=== PATIENT | male | born 2000 | race Native Hawaiian/Other Pacific Islander ===

== ENCOUNTER → 2020-09-18 | Outpatient (CLI) | payer OTHER ==
--- NOTE | 2020-09-19 10:26 | ECHOF ---
Referral Reason:R00.2 Palpitations MEASUREMENTS -------- HEIGHT: 182.9 cm WEIGHT: 61.2 kg BP: IVSd: 0.8 cm (0.6 - 1.1) LVIDd: 3.8 cm (3.9 - 5.3) LVPWd: 1.3 cm (0.6 - 1.1) EDV(Teich): 61 ml IVSs: 1.2 cm LVIDs: 3.1 cm LVPWs: 1.2 cm %IVS Thck: 47 % ESV(Teich): 36 ml EF(Teich): 40 % %FS: 19 % SV(Teich): 25 ml LA Diam: 2.5 cm (2.7 - 3.8) RVIDd: 1.9 cm (< 3.3) EPSS: 0.4 cm MV E Sunny: 0.73 m/s MV DecT: 198 ms MV Dec [place]: 3.7 m/s MV A Sunny: 0.42 m/s MV E/A Ratio: 1.71 MV PHT: 57 ms TR Vmax: 2.35 m/s TR maxP.16 mmHg RAP: 5.00 mmHg RVSP: 27.16 mmHg MV EF SLOPE: 89.55 mm/s (70 - 150) MV EXCURSION: 24.82 mm (> 18.000) FINDINGS -------- Sinus rhythm. This was a technically good study. LV size, wall thickness and systolic function are normal, with an EF greater than 55%. The left salma tricular size is normal. The right ventricle is normal in size. The left atrial size is normal. The right atrial size is normal. There is mild aortic valve sclerosis. There is no evidence of aortic regurgitation. Mild mitral regurgitation is present. Mild tricuspid regurgitation present. Right ventricular systolic pressure is normal at < 35 mmHg. There is no pulmonic regurgitation present. The aortic root size is normal. There is no pericardial effusion. CONCLUSIONS -------- 1. Sinus rhythm. 2. LV size, wall thickness and systolic function are normal, with an EF greater than 55%. 3. The left ventricular size is normal. 4. The right ventricle is normal in size. 5. The left atrial size is normal. 6. The right atrial size is normal. 7. There is mild aortic valve sclerosis. 8. Mild mitral regurgitation is present. 9. Mild tricuspid regurgitation present. 10. The aortic root size is normal. 11. There is no pericardial effusion. SLIVER FORMER: Beatris Gupta RDCS
== END | disposition home or self-care (01) ==
LOC: RADECHMAIN 14:55
PROVIDERS: ATTEND Internal Medicine
DX: I08.1 Rheumatic disorders of both mitral and tricuspid valves (principal); I49.8 Other specified cardiac arrhythmias
CPT/HCPCS: 93306

== ENCOUNTER → 2020-09-23 | Outpatient (CLI) | payer OTHER ==
--- NOTE | 2020-09-23 22:37 | MR ---
EXAMINATION TYPE: MR knee RT wo con DATE OF EXAM: 09/23/2020 COMPARISON: None. HISTORY: Right lateral knee pain after running for 1 month. Rule out torn meniscus. Other internal de rangements. TECHNIQUE: Multiplanar, multisequence imaging of the right knee is performed without IV contrast. FINDINGS: MEDIAL MENISCUS: Anterior and posterior horns are intact without tear. LATERAL MENISCUS: Anterior and posterior horns are intact without tear. CRUCIATE LIGAMENTS: The anterior and posterior cruciate ligaments are intact and unremarkable. COLLATERAL LIGAMENTS: The medial collateral ligament and lateral collateral ligament complex are inta ct and unremarkable. EXTENSOR MECHANISM: Visualized quadriceps and patellar tendons are intact. EFFUSION: Tiny suprapatellar joint effusion. POPLITEAL CYST: No popliteal/serrano cyst. TRICOMPARTMENT SPACES: Mild inferior patellofemoral compartment narrowing. Tricompartment joint spac es are otherwise maintained. No significant spurring is seen. CARTILAGE: Tricompartmental articular cartilage is preserved. BONE MARROW SIGNAL: There is a heterogeneous diminished T1 and increased T2 signal present in the fib ular head. Findings most prominent in the proximal tibial metaphysis greatest over the medial aspect. There are additional areas in the distal tibial metaphysis greatest over the medial posterior aspect . No areas of low T1 signal to suggest radial occult fracture OTHER: No additional significant abnormality is appreciated. IMPRESSION: Multifocal areas of osseous contusion and/or abnormal bone marrow edema involving the fib ular head, distal femur centered posterior medial metaphysis and most pronounced throughout the proxi mal tibial metaphysis greatest over the medial aspect. No discrete meniscal or ligamentous tear.
== END | disposition home or self-care (01) ==
LOC: RADMRIMAIN 20:47
PROVIDERS: ATTEND Orthopaedic Surgery
DX: M25.561 Pain in right knee (principal)

== ENCOUNTER → 2020-10-04 | Outpatient (CLI) | payer OTHER ==
--- NOTE | 2020-10-04 17:09 | NM ---
EXAMINATION TYPE: NM bone 3 phase DATE OF EXAM: 10/04/2020 COMPARISON: MRI right knee 09/23/2020 HISTORY: 20-year-old male M23.8X1, internal derangement right knee, S80.01XD. TECHNIQUE: No Triple phase bone scintigraphy was performed following the injection of 19.8 mCi Tc 99m MDP. Immediate images and 4 hours post injection images acquired. Image centered at the bilateral k nees. FINDINGS: No significant increased asymmetric uptake on flow or pool images at either knee. Delayed images show focal increased activity along the bilateral medial tibial plateaus. On the right, some increased ac tivity extends to the lateral tibial plateau, metadiaphysis, and fibular head. IMPRESSION: Abnormality on delayed bone scan images with increased activity involving the bilateral medial tibial plateaus suggesting osseous injuries or contusions. On the right, lesser degree of increased activit y also extends to the lateral tibial plateau, proximal tibial metadiaphysis, and fibular head suggest ing additional sites of osseous injury/contusions.
== END | disposition home or self-care (01) ==
LOC: RADNMMAIN 07:16
PROVIDERS: ATTEND Orthopaedic Surgery
DX: M23.8X1 Other internal derangements of right knee (principal); S80.01XD Contusion of right knee, subsequent encounter
CPT/HCPCS: 78315; A9503

== ENCOUNTER 2024-06-10 14:44 | Emergency (ER) | payer OTHER ==
[2024-06-10 15:16] VITALS: RESP 18
--- NOTE | 2024-06-10 16:34 | ED ---
Lower Extremity Injury HPI - General Source: patient, RN notes reviewed Mode of arrival: ambulatory Limitations: no limitations - History of Present Illness MD Complaint: ankle injury, foot injury Onset/Timin -: days(s) <Korey Álvarez - Last Filed: 06/10/24 16:33> <Viviane Lamar - Last Filed: 06/12/24 00:14> - General Chief Complaint: Extremity Injury, Lower Stated Complaint: R ankle pain Time Seen by Provider: 06/10/24 15:01 - History of Present Illness Initial Comments: Quick note: This is a 24-year-old male with right ankle pain (11/21) following a slip and fall on 06/06/2024. Patient states he had an x-ray formed at the [facility] urgent care with no fracture was discovered. Endorses ongoing pain and swelling and is still unable to bear weight on affected extremity. (Korey Álvarez) 24-year-old male presenting with chief complaint of right ankle pain. Patient had a slip and fall on 06/06 and twisted his ankle. He had x-rays performed at that time which showed no fracture. Patient was concerned because he had increasing swelling to the leg. He is still having pain with weightbearing. He has some bruising to the foot. (Viviane Lamar) - Related Data Previous Rx's Medication Instructions Recorded Acetaminophen-Codeine 300-30mg 1 tab PO Q4H PRN #20 tablet 10/01/15 [Tylenol #3] Ibuprofen [Motrin] 600 mg PO Q8HR PRN #30 tab 10/01/15 Allergies Allergy/AdvReac Type Severity Reaction Status Date / Time No Known Allergies Allergy Verified 06/10/24 15:16 Review of Systems ROS Other: All systems not noted in ROS Statement are negative. <Korey Álvarez - Last Filed: 06/10/24 16:33> ROS Other: All systems not noted in ROS Statement are negative. <Viviane Lamar - Last Filed: 06/12/24 00:14> ROS Statement: Those systems with pertinent positive or pertinent negative responses have been documented in the HPI. Past Medical History Past Medical History: No Reported History History of Any Multi-Drug Resistant Organisms: None Reported Past Surgical History: Appendectomy Past Psychological History: No Psychological Hx Reported Smoking Status: Never smoker Past Alcohol Use History: Occasional Past Drug Use History: Marijuana <Korey Álvarez - Last Filed: 06/10/24 16:33> General Exam Limitations: no limitations <Korey Álvarez - Last Filed: 06/10/24 16:33> Limitations: no limitations General appearance: alert, in no apparent distress Head exam: Present: atraumatic, normocephalic Eye exam: Present: normal appearance, EOMI Neck exam: Present: normal inspection. Absent: meningismus Respiratory exam: Absent: respiratory distress Cardiovascular Exam: Present: regular rate Right Ankle exam: Present: tenderness, swelling, ecchymosis. Absent: full ROM Neurovascular tendon exam: Present: no vascular compromise (Due to the swelling it was difficult to palpate a pulse, however there is a strong Doppler signal) Neurological exam: Present: alert, oriented X3 Psychiatric exam: Present: normal affect, normal mood Skin exam: Present: warm, dry <Viviane Lamar - Last Filed: 06/12/24 00:14> - General Exam Comments Initial Comments: Visual Physical Exam Vital signs reviewed General: Well-appearing, nontoxic, no acute distress. Head: Normocephalic, atraumatic Eyes: PERRLA, EOMI ENT: Airway patent Chest: Nonlabored breathing Skin: No visual rash, normal skin tone Neuro: Alert and oriented 3 Musculoskeletal: No gross abnormalities (Korey Álvarez) Course Vital Signs 06/10/24 06/10/24 15:13 17:48 Temperature 98.4 F 97.9 F Pulse Rate 81 89 Respiratory 18 18 Rate Blood Pressure 162/76 145/82 O2 Sat by Pulse 100 99 Oximetry Medical Decision Making <Korey Álvarez - Last Filed: 06/10/24 16:33> <Viviane Lamar - Last Filed: 06/12/24 00:14> - Medical Decision Making I completed the quick note portion of this chart signed CALI Jacobson (Korey Álvarez) Was pt. sent in by a medical professional or institution (ALYSA Vasquez, RESERVATION AGENT, urgent care, hospital, or jail...) When possible be specific @ -No Did you speak to anyone other than the patient for history (EMS, parent, family, police, friend...)? What history was obtained from this source @ -No Did you review nursing and triage notes (agree or disagree)? Why? @ -I reviewed and agree with nursing and triage notes Were old charts reviewed (outside hosp., previous admission, EMS record, old EKG, old radiological studies, urgent care reports/EKG's, jail records)? Report findings @ -No old charts were reviewed Differential Diagnosis (chest pain, altered mental status, abdominal pain women, abdominal pain men, vaginal bleeding, weakness, fever, dyspnea, syncope, headache, dizziness, GI bleed, back pain, seizure, CVA, palpatations, mental health, musculoskeletal)? @ -Differential Musculoskeletal Muscular strain, contusion, ligament sprain, fracture, arthritis, septic arthritis, bursitis, cellulitis, muscle spasm, nerve compression, DVT, arterial occlusion, herpes zoster, electrolyte abnormality, tumor.... This is not meant to be in all inclusive list EKG interpreted by me (3pts min.). @ -As above X-rays interpreted by me (1pt min.). @ -X-ray shows soft tissue edema around the ankle and forefoot correlate for soft tissue ligamentous injury. No evidence of fracture. No significant degeneration changes. No evidence of dislocation. CT interpreted by me (1pt min.). @ -None done U/S interpreted by me (1pt. min.). @ -None done What testing was considered but not performed or refused? (CT, X-rays, U/S, labs)? Why? @ -None What meds were considered but not given or refused? Why? @ -None Did you discuss the management of the patient with other professionals (professionals i.e. , PA, RESERVATION AGENT, lab, RT, psych nurse, clinical social work aide, liquid hydrogen plant operator, teacher, equal opportunity officer, senior case manager)? Give summary @ -No Was smoking cessation discussed for >3mins.? @ -No Was critical care preformed (if so, how long)? @ -No Were there social determinants of health that impacted care today? How? (Homelessness, low income, unemployed, alcoholism, drug addiction, transportation, low edu. Level, literacy, decrease access to med. care, skilled nursing, rehab)? @ -No Was there de-escalation of care discussed even if they declined (Discuss DNR or withdrawal of care, Hospice)? DNR status @ -No What co-morbidities impacted this encounter? (DM, HTN, Smoking, COPD, CAD, Cancer, CVA, ARF, Chemo, Hep., AIDS, mental health diagnosis, sleep apnea, morbid obesity)? @ -None Was patient admitted / discharged? Hospital course, mention meds given and route, prescriptions, significant lab abnormalities, going to OR and other pertinent info. @ -24-year-old male presenting with chief complaint of ankle injury. Patient twisted his ankle on the and is still having pain and swelling. Workup is initiated by triage, x-ray shows no evidence of fracture or dislocation. Patient is later placed in room and examined by myself. Due to the degree of swelling is difficult to palpate his pulse, however there is a strong Doppler signal. Patient is educated on today's findings. Provided with ankle stirrup splint and he has crutches he will continue to use. Instructed to follow-up with his PCP, explained that he may need an MRI and/or orthopedic evaluation. Follow-up with PCP. Report back to ER with any new or worsening symptoms. Discussed return parameters and answered all questions. Patient conveyed verbal understanding and agreed to the plan. I discussed this case in detail with my attending Dr. Tipton Undiagnosed new problem with uncertain prognosis? @ -No Drug Therapy requiring intensive monitoring for toxicity (Heparin, Nitro, Insulin, Cardizem)? @ -No Were any procedures done? @ -No Diagnosis/symptom? @ -Ankle sprain Acute, or Chronic, or Acute on Chronic? @ -Acute Uncomplicated (without systemic symptoms) or Complicated (systemic symptoms)? @ -Uncomplicated Side effects of treatment? @ -No Exacerbation, Progression, or Severe Exacerbation? @ -No Poses a threat to life or bodily function? How? (Chest pain, [place], [place], pneumonia, PE, COPD, DKA, ARF, appy, cholecystitis, CVA, Diverticulitis, Homicidal, Suicidal, threat to staff... and all critical care pts) @ -No (Viviane Lamar) Disposition <Korey Álvarez - Last Filed: 06/10/24 16:33> Is patient prescribed a controlled substance at d/c from ED?: No Time of Disposition: 17:41 <Viviane Lamar - Last Filed: 06/12/24 00:14> Clinical Impression: Ankle sprain Disposition: HOME SELF-CARE Condition: Good Instructions (If sedation given, give patient instructions): Ankle Sprain (ED) Additional Instructions: Follow-up with PCP. Report back to ER with any new or worsening symptoms. Motrin and Tylenol for pain. Rest, ice, compress, elevate the ankle Referrals: None,Stated [Primary Care Provider] - 1-2 days
--- NOTE | 2024-06-10 17:26 | XR ---
EXAMINATION TYPE: XR foot complete RT, XR ankle complete RT DATE OF EXAM: 06/10/2024 5:05 PM COMPARISON: None CLINICAL INDICATION: Male, 24 years old with history of Slip/fall, unable to bear weight; PHH, pain TECHNIQUE: XR foot complete RT, XR ankle complete RT examined in the AP, oblique, and lateral project ions. FINDINGS/IMPRESSION: * Soft tissue edema around the ankle and forefoot correlate for soft tissue ligamentous injury. * No evidence of fracture. * No significant degeneration changes. * no evidence for dislocation. [facility], , 06/10/2024 5:24 PM
[2024-06-10 17:49] VITALS: BP 145/82; PULSE 89; TEMP 97.9
== END 2024-06-10 17:49 | disposition home or self-care (01) ==
LOC: EC 14:44
DX: S93.401A Sprain of unspecified ligament of right ankle, initial encounter (principal); X50.1XXA Overexertion from prolonged static or awkward postures, initial encounter
CPT/HCPCS: 73610; 73630; 99283; L4350